=== PATIENT | female | born 1970 | race Caucasian/White ===

== ENCOUNTER 2024-01-21 14:16 | Emergency (ER) | payer BC ==
[~2024-01-21] VITALS: Ht 170.2 cm; Wt 81.6 kg
[~2024-01-21 14:16] MED LIST: IBUP100O3 PO
[2024-01-21] MEDS ORDERED: HYDR-3972 PO (15:19)
[2024-01-21 16:25] VITALS: BP 110/65; O2SAT 99
== END 2024-01-21 16:25 | disposition home or self-care (01) ==
LOC: ER 14:19
DX: S92.352A Displaced fracture of fifth metatarsal bone, left foot, initial encounter for closed fracture (principal); Z79.899 Other long term (current) drug therapy; W18.39XA Other fall on same level, initial encounter; Y93.89 Activity, other specified; Y92.89 Other specified places as the place of occurrence of the external cause; Y99.8 Other external cause status
CPT/HCPCS: 73600; 73630; A4606; A4663

== ENCOUNTER 2024-08-29 10:50 | Emergency (ER) | payer BC ==
[~2024-08-29] VITALS: Ht 170.2 cm; Wt 83.9 kg
[~2024-08-29 10:50] MED LIST changes: +HYDR-3972 PO
[2024-08-29] MEDS: METOCLOPRAMIDE HCL 10 MG/2 ML VIAL IV ONE (11:30)
[2024-08-29] MEDS ORDERED: MORPHINE SULFATE 4 MG/1 ML DISP.SYRIN IV ONE (11:30)
[2024-08-29 11:32] LABS: BASOPHILS # (AUTO) 0.1 K/UL (0.0-0.2); BASOPHILS % (AUTO) 1.2 % (0.0-2.0); EOSINOPHILS % (AUTO) 0.4 % (0.0-7.0); HEMATOCRIT 36.6 % (31.2-41.9); LYMPHOCYTES # (AUTO) 1.6 K/uL (0.8-4.8); LYMPHOCYTES % (AUTO) 25.7 % (20.5-51.5); MEAN CORPUSCULAR HEMOGLOBIN 29.5 uug (24.7-32.8); MEAN CORPUSCULAR HGB CONC 33 g/dL (32.3-35.6); MONOCYTES # (AUTO) 0.4 K/uL (0.1-1.30); MONOCYTES % (AUTO) 6.7 % (0.0-11.0); NEUTROPHILS # (AUTO) 4.1 K/uL (1.8-8.9); PLATELET COUNT (AUTO) 242 K/uL (179-408); RED BLOOD CELL COUNT(AUTO) 4.06 MIL/uL (3.63-4.92); RED CELL DISTRIBUTION WIDTH 13.1 % (12.3-17.7); WHITE BLOOD COUNT (AUTO) 6.3 K/uL (3.8-11.8)
[2024-08-29 11:35] LABS: DIFFERENTIAL COMMENT 1
[2024-08-29] MEDS ORDERED: KETOROLAC TROMETHAMINE 30 MG INJ ONE (11:35)
[2024-08-29 11:41] LABS: CALCIUM 8.4 mg/dL (8.5-10.1); CREATININE 0.7 mg/dL (0.6-1.3); POTASSIUM 3.7 mmol/L (3.5-5.1)
[2024-08-29] MEDS: KETOROLAC TROMETHAMINE 30 MG INJ IVP ONE (11:41)
[2024-08-29] MEDS: IV NORMAL SALINE 1000 ML BAG IV ONE (11:45)
[2024-08-29 11:47] LABS: ALBUMIN 3.5 g/dL (3.4-5.0); BILIRUBIN,DIRECT 0.2 mg/dL (0.0-0.2); BILIRUBIN,TOTAL 0.7 mg/dL (0.2-1.0); TOTAL PROTEIN, SERUM 7.1 g/dL (6.4-8.2)
[2024-08-29 11:47] LABS: *BILIRUBIN,URIN NEGATIVE (NEGATIVE); *BLOOD, URINE NEGATIVE (NEGATIVE); *CLARITY,URINE CLEAR (CLEAR); *COLOR,URINE YELLOW (YELLOW); *KETONES,URINE NEGATIVE (NEGATIVE); *PROTEIN,URINE NEGATIVE (NEGATIVE); *UROBILINOGEN,URINE 0.2 E.U./dl (NORMAL); LEUKOCYTE ESTERASE ,URINE NEGATIVE (NEGATIVE); NITRITE, URINE NEGATIVE (NEGATIVE); UGLUCOSE NEGATIVE (NEGATIVE)
[2024-08-29 11:52] LABS: *URINE HCG, QUAL NEGATIVE (NEGATIVE)
[2024-08-29] MEDS ORDERED: RABE20TA32 PO (12:48)
[2024-08-29] MEDS ORDERED: PANTOPRAZOLE SODIUM 40 MG TABLET.DR PO ONE (13:26)
[2024-08-29] MEDS: PANTOPRAZOLE SODIUM 40 MG TABLET.DR PO ONE (13:30)
[2024-08-29] MEDS: PANTOPRAZOLE SODIUM IV 40 MG in IV DEXTROSE 5% 100 ML IV ONE (13:30)
[2024-08-29 13:38] VITALS: BP 126/78; O2SAT 99
[2024-08-30] MEDS ORDERED: ONDANSETRON ODT 4 MG TAB.RAPDIS SL ONE (00:45)
[2024-08-30] MEDS ORDERED: MAG HYDROX/AL HYDROX/SIMETH 30 ML LIQUID UDC PO ONE (00:45)
[2024-08-30] MEDS ORDERED: LIDOCAINE VISCUS 2% 15 ML UDC MM ONE (00:45)
[2024-08-30] MEDS ORDERED: TRAM50TA2 PO (01:34)
== END 2024-08-29 13:39 | disposition home or self-care (01) ==
LOC: ER 10:51
DX: K29.70 Gastritis, unspecified, without bleeding (principal); R10.2 Pelvic and perineal pain; Z79.899 Other long term (current) drug therapy; Z88.7 Allergy status to serum and vaccine
CPT/HCPCS: 99284; 96374; 80076; 80048; 81003; 84703; 83690; 85025; 36415; 93005; J1885; J7040; A4606; A4663; J2470

== ENCOUNTER 2024-08-29 23:32 | Emergency (ER) | payer BC ==
[~2024-08-29] VITALS: Ht 170.2 cm; Wt 83.9 kg
[~2024-08-29 23:32] MED LIST changes: +RABE20TA32 PO
[2024-08-30] MEDS ORDERED: MAG HYDROX/AL HYDROX/SIMETH 30 ML LIQUID UDC ONE (00:49)
[2024-08-30] MEDS ORDERED: ONDANSETRON ODT 4 MG TAB.RAPDIS ONE (00:49)
[2024-08-30] MEDS ORDERED: LIDOCAINE VISCUS 2% 15 ML UDC ONE (00:49)
[2024-08-30] MEDS: LIDOCAINE VISCUS 2% 15 ML UDC MM ONE (00:50)
[2024-08-30] MEDS: ONDANSETRON ODT 4 MG TAB.RAPDIS SL ONE (00:51)
[2024-08-30] MEDS: MAG HYDROX/AL HYDROX/SIMETH 30 ML LIQUID UDC PO ONE (00:51)
[2024-08-30] MEDS: HYDROCODONE/APAP 10-325 MG TABLET PO ONE (01:31)
[2024-08-30] MEDS ORDERED: HYDROCODONE/APAP 10-325 MG TABLET ONE (01:31)
[2024-08-30] MEDS ORDERED: TRAM50TA2 PO (01:34)
[2024-08-30 01:37] VITALS: BP 128/71; TEMP 98; O2SAT 99
== END 2024-08-30 01:38 | disposition home or self-care (01) ==
LOC: ER 08-30 00:01
DX: M54.6 Pain in thoracic spine (principal); R10.13 Epigastric pain; K21.9 Gastro-esophageal reflux disease without esophagitis; Z88.7 Allergy status to serum and vaccine
CPT/HCPCS: A4606; A4663; Q0162

== ENCOUNTER → 2025-02-22 | Emergency (ER) | payer BC ==
[~2025-02-22] VITALS: Ht 170.2 cm; Wt 81.6 kg
[~2025-02-22] MED LIST changes: +DICY10CA13 PO; +DICYCLOMINE HCL 10 MG CAPSULE PO STA; +DICYCLOMINE HCL 20 MG TABLET ONE; +KETOROLAC TROMETHAMINE 15 MG INJ ONE; +ONDA4TAB5 PO; +ONDANSETRON 4 MG/2 ML VIAL ONE; +TRAM50TA2 PO
[2025-02-22] MEDS: IV NORMAL SALINE 500 ML BAG IV ONE (22:02)
[2025-02-22 22:07] LABS: BASOPHILS % (AUTO) 0.5 % (0.0-2.0); EOSINOPHILS # (AUTO) 0.1 K/uL (0.0-0.7); HEMATOCRIT 39.8 % (31.2-41.9); LYMPHOCYTES # (AUTO) 1.3 K/uL (0.8-4.8); LYMPHOCYTES % (AUTO) 16.8 % (20.5-51.5); MEAN CORPUSCULAR HEMOGLOBIN 29.5 uug (24.7-32.8); MEAN CORPUSCULAR HGB CONC 33 g/dL (32.3-35.6); MEAN CORPUSCULAR VOLUME 90.5 fL (75.5-95.3); MONOCYTES # (AUTO) 0.6 K/uL (0.1-1.30); MONOCYTES % (AUTO) 8.1 % (0.0-11.0); NEUTROPHILS # (AUTO) 5.6 K/uL (1.8-8.9); NEUTROPHILS % (AUTO) 73.6 % (38.5-71.5); PLATELET COUNT (AUTO) 349 K/uL (179-408); RED CELL DISTRIBUTION WIDTH 13.5 % (12.3-17.7); WHITE BLOOD COUNT (AUTO) 7.6 K/uL (3.8-11.8)
[2025-02-22 22:11] LABS: DIFFERENTIAL COMMENT 1
[2025-02-22 22:13] LABS: CALCIUM 9.2 mg/dL (8.5-10.1); CREATININE 0.8 mg/dL (0.6-1.3); POTASSIUM 3.6 mmol/L (3.5-5.1)
[2025-02-22 22:19] LABS: ALBUMIN 3.9 g/dL (3.4-5.0); BILIRUBIN,TOTAL 0.7 mg/dL (0.2-1.0); MAGNESIUM 2.1 mg/dL (1.8-2.4); TOTAL PROTEIN, SERUM 8.3 g/dL (6.4-8.2)
[2025-02-22] MEDS: DICYCLOMINE HCL 20 MG TABLET PO STA (22:19)
[2025-02-22] MEDS: ONDANSETRON 4 MG/2 ML VIAL IV ONE (22:19)
[2025-02-22] MEDS: KETOROLAC TROMETHAMINE 15 MG INJ IVP ONE (22:20)
[2025-02-22 22:45] LABS: C-REACTIVE PROTEIN 2.28 mg/dL (0.00-0.30)
[2025-02-22 23:29] VITALS: BP 120/74; O2SAT 97
== END | disposition home or self-care (01) ==
LOC: ER 21:24
DX: A08.4 Viral intestinal infection, unspecified (principal); R10.84 Generalized abdominal pain; Z88.7 Allergy status to serum and vaccine; Z87.19 Personal history of other diseases of the digestive system
CPT/HCPCS: 99284; 96374; 96361; 96375; 80053; 83690; 83735; 85025; 86140; 36415; 83605; J1885; J2405; J7040 ×2; A4606; A4663